=== PATIENT | female | born 1940 | race Caucasian/White ===

== ENCOUNTER 2016-04-22 02:54 | Inpatient (IN) | payer MEDICARE, OTHER ==
[~2016-04-22] VITALS: Ht 172.7 cm; Wt 135.6 kg
[2016-04-22 05:15] VITALS: BP 163/69
[2016-04-22] MEDS ORDERED: [UNRECOGNIZED DRUG - CODE] PO (06:05)
[2016-04-22] MEDS ORDERED: ASPI-991 PO (06:05)
[2016-04-22] MEDS ORDERED: FURO40TA5 PO (06:05)
[2016-04-22] MEDS ORDERED: FERR-58 PO (06:05)
[2016-04-22] MEDS ORDERED: LOSA1TAB36 PO (06:05)
[2016-04-22] MEDS ORDERED: CEFTRIAXONE 1 G in IV D5W 50 ML IV SCH (06:30)
[2016-04-22] MEDS ORDERED: ZOLPIDEM TARTRATE 5 MG TABLET PO PRN (06:30)
[2016-04-22] MEDS ORDERED: ACETAMINOPHEN 325 MG TABLET PO PRN (06:30)
[2016-04-22] MEDS ORDERED: ONDANSETRON HCL/PF 4 MG/2 ML VIAL IVP PRN (06:30)
[2016-04-22] MEDS ORDERED: Z GUARD REMEDY 2 OZ OINT TP PRN (06:30)
[2016-04-22] MEDS ORDERED: MAGNESIUM HYDROXIDE 30 ML UDC PO PRN (06:30)
[2016-04-22] MEDS ORDERED: CLONIDINE HCL 0.1 MG TABLET PO PRN (06:30)
[2016-04-22] MEDS ORDERED: MAG HYDROX/AL HYDROX/SIMETH 30 ML UDC PO PRN (06:30)
[2016-04-22] MEDS ORDERED: IV SET PRIMARY PUMP SET 1 EA INFUS.SET MC ONE ×2 (06:33→13:07)
[2016-04-22] MEDS ORDERED: SECONDARY IV SET 1 EA INFUS.SET MC ONE (06:33)
[2016-04-22] MEDS ORDERED: IV D5W 250 ML IV ONE (06:33)
[2016-04-22] MEDS ORDERED: IV NS 0.9% 250 ML IV ONE (06:33)
[2016-04-22] MEDS ORDERED: AZITHROMYCIN 500 MG VIAL ONE (06:43)
[2016-04-22] MEDS: AZITHROMYCIN 500 MG in IV D5W 250 ML IV SCH (06:55)
[2016-04-22 07:38] LABS: BASOPHILS % (AUTO) 0.1 % (0.0-2.0); DIFF TOTAL % 100 %; HEMATOCRIT 33 % (33-45); HEMOGLOBIN 11.1 g/dL (11.5-14.8); LYMPHOCYTES # (AUTO) 0.7 /CMM (0.8-4.8); LYMPHOCYTES % (AUTO) 4.8 % (20.0-44.0); MEAN CORPUSCULAR HEMOGLOBIN 30 PG (26.0-33.0); MEAN CORPUSCULAR HGB CONC 34 g/dl (31.0-36.0); MEAN CORPUSCULAR VOLUME 90 fL (82-100); MONOCYTES # (AUTO) 0.1 /CMM (0.1-1.30); MONOCYTES % (AUTO) 0.6 % (2.0-12.0); NEUTROPHILS # (AUTO) 14.4 /CMM (1.8-8.9); NEUTROPHILS % (AUTO) 94.5 % (43.0-81.0); PLATELET COUNT (AUTO) 234 /CMM (150-450); RED BLOOD CELL COUNT(AUTO) 3.68 MIL/uL (4.0-5.2); WHITE BLOOD COUNT (AUTO) 15.3 K/uL (4.3-11.0)
[2016-04-22 08:00] VITALS: BP 129/67
[2016-04-22 08:05] LABS: ALBUMIN 2.9 g/dL (3.4-5.0); BILIRUBIN,TOTAL 0.4 mg/dL (0.2-1.0); CALCIUM, SERUM 8.6 mg/dL (8.5-10.1); CREATININE 1.6 mg/dL (0.6-1.3); PHOSPHORUS 3.9 mg/dL (2.5-4.9); TOTAL PROTEIN, SERUM 6.9 g/dL (6.4-8.2)
[2016-04-22] MEDS: PANTOPRAZOLE 40 MG TABLET.DR PO SCH (08:15)
[2016-04-22 12:00] VITALS: BP 112/61
[2016-04-22] MEDS: FERROUS SULFATE (325 MG) 325 MG/TAB TABLET PO SCH (13:11)
[2016-04-22] MEDS: ASPIRIN EC 81 MG TABLET.DR PO SCH (13:11)
[2016-04-22] MEDS: IV NS 0.9% 1,000 ML IV PRN (13:11)
[2016-04-22] MEDS: LOSARTAN/HCTZ 50-12.5MG/ 1 EA TABLET PO SCH (13:22)
[2016-04-22] MEDS ORDERED: Magnesium 1GM/D5W 100ML PREMIX 100 ML IV SCH (13:30)
[2016-04-22 16:00] VITALS: BP 118/50
[2016-04-22] MEDS: HYDROCODONE/APAP 5/325MG 1 EACH TABLET PO PRN ×3 (17:14→23:12)
[2016-04-22] MEDS: NYSTATIN TOP POWDER 15 GM BOTTLE TP SCH (17:21)
[2016-04-22] MEDS ORDERED: DEXTROSE 50%-WATER 50 ML DISP.SYRIN IV PRN (18:00)
[2016-04-22 18:26] LABS: CALCIUM, SERUM 8.8 mg/dL (8.5-10.1); CREATININE 1.5 mg/dL (0.6-1.3); POTASSIUM 3.9 mmol/L (3.5-5.1)
[2016-04-22 20:00] VITALS: BP 123/43
[2016-04-22] MEDS: BLOOD SUGAR DIAGNOSTIC 1 EACH STRIP VI SCH (20:43)
[2016-04-22] MEDS: CEFTRIAXONE 1 G in IV D5W 50 ML IV SCH (23:15)
[2016-04-22] MEDS: *INSULIN REGULAR(HUMULIN R)HUM 100 UNIT/ML VIAL SQ PRN (23:21)
[2016-04-23] VITALS (7 sets, daily range): BP systolic 123–152; BP diastolic 43–72
[2016-04-23] MEDS: HYDROCODONE/APAP 5/325MG 1 EACH TABLET PO PRN (03:22)
[2016-04-23] MEDS: IV NS 0.9% 1,000 ML IV PRN ×2 (04:05→20:56)
[2016-04-23] MEDS: AZITHROMYCIN 500 MG in IV D5W 250 ML IV SCH (05:46)
[2016-04-23] MEDS: BLOOD SUGAR DIAGNOSTIC 1 EACH STRIP VI SCH ×4 (06:41→22:17)
[2016-04-23] MEDS: PANTOPRAZOLE 40 MG TABLET.DR PO SCH (06:44)
[2016-04-23 08:19] LABS: BASOPHILS % (AUTO) 0.2 % (0.0-2.0); DIFF TOTAL % 100 %; EOSINOPHILS % (AUTO) 0.1 % (0.0-6.0); HEMATOCRIT 32 % (33-45); HEMOGLOBIN 10.9 g/dL (11.5-14.8); LYMPHOCYTES % (AUTO) 13.7 % (20.0-44.0); MEAN CORPUSCULAR HEMOGLOBIN 30 PG (26.0-33.0); MEAN CORPUSCULAR HGB CONC 34 g/dl (31.0-36.0); MEAN CORPUSCULAR VOLUME 90 fL (82-100); MONOCYTES # (AUTO) 0.9 /CMM (0.1-1.30); MONOCYTES % (AUTO) 6.1 % (2.0-12.0); NEUTROPHILS # (AUTO) 11.9 /CMM (1.8-8.9); NEUTROPHILS % (AUTO) 79.9 % (43.0-81.0); PLATELET COUNT (AUTO) 242 /CMM (150-450); RED BLOOD CELL COUNT(AUTO) 3.59 MIL/uL (4.0-5.2); WHITE BLOOD COUNT (AUTO) 14.9 K/uL (4.3-11.0)
[2016-04-23 08:26] LABS: CALCIUM, SERUM 8.7 mg/dL (8.5-10.1); CREATININE 1.5 mg/dL (0.6-1.3); PHOSPHORUS 4.2 mg/dL (2.5-4.9); POTASSIUM 4.1 mmol/L (3.5-5.1)
[2016-04-23 08:38] LABS: KETONES,URINE NEGATIVE (NEGATIVE); LEUKOCYTE ESTERASE ,URINE 1+ (NEGATIVE); PH,URINE 5.5 (5.0-8.0)
[2016-04-23] MEDS: LOSARTAN/HCTZ 50-12.5MG/ 1 EA TABLET PO SCH (08:46)
[2016-04-23] MEDS: FERROUS SULFATE (325 MG) 325 MG/TAB TABLET PO SCH (08:46)
[2016-04-23] MEDS: ASPIRIN EC 81 MG TABLET.DR PO SCH (08:46)
[2016-04-23] MEDS: NYSTATIN TOP POWDER 15 GM BOTTLE TP SCH ×2 (08:47→17:44)
[2016-04-23 08:53] LABS: ADD UA MICROSCOPIC YES
[2016-04-23 08:56] LABS: ADD URINE CULTURE YES; MUCUS,URINE Few /LPF (None Seen); RBC,URINE 15-20 /HPF (0-2); WBC,URINE 15-20 /HPF (0-3)
[2016-04-23] MEDS ORDERED: INSULIN REGULAR, HUMAN 100 UNIT/ML 3 ML VIAL SQ PRN (12:00)
[2016-04-23 14:24] LABS: IRON, SERUM 83 ug/dl (50-175); PERCENT SATURATION 31 % (14-33); TOTAL IRON BINDING CAPACITY 266 ug/dl (250-450)
[2016-04-23] MEDS ORDERED: GUAIFENESIN/D-METHORPHAN HB 5 ML UDC PO PRN (14:30)
[2016-04-23] MEDS: CEFTRIAXONE 1 G in IV D5W 50 ML IV SCH (22:14)
[2016-04-23] MEDS ORDERED: SECONDARY IV SET 1 EA INFUS.SET MC ONE (22:18)
[2016-04-24 04:00] VITALS: BP 124/56
[2016-04-24 04:16] VITALS: BP 124/56
[2016-04-24] MEDS: AZITHROMYCIN 500 MG in IV D5W 250 ML IV SCH (05:31)
[2016-04-24] MEDS: BLOOD SUGAR DIAGNOSTIC 1 EACH STRIP VI SCH ×4 (07:30→21:48)
[2016-04-24] MEDS: PANTOPRAZOLE 40 MG TABLET.DR PO SCH (07:30)
[2016-04-24 07:53] LABS: BASOPHILS # (AUTO) 0.1 /CMM (0.0-0.2); BASOPHILS % (AUTO) 0.5 % (0.0-2.0); DIFF TOTAL % 100 %; EOSINOPHILS # (AUTO) 0.3 /CMM (0.0-0.7); EOSINOPHILS % (AUTO) 2.5 % (0.0-6.0); HEMATOCRIT 32 % (33-45); HEMOGLOBIN 10.8 g/dL (11.5-14.8); LYMPHOCYTES # (AUTO) 3.2 /CMM (0.8-4.8); LYMPHOCYTES % (AUTO) 27.9 % (20.0-44.0); MEAN CORPUSCULAR HEMOGLOBIN 30 PG (26.0-33.0); MEAN CORPUSCULAR HGB CONC 33 g/dl (31.0-36.0); MEAN CORPUSCULAR VOLUME 91 fL (82-100); MONOCYTES # (AUTO) 0.6 /CMM (0.1-1.30); MONOCYTES % (AUTO) 5.7 % (2.0-12.0); NEUTROPHILS # (AUTO) 7.2 /CMM (1.8-8.9); NEUTROPHILS % (AUTO) 63.4 % (43.0-81.0); PLATELET COUNT (AUTO) 243 /CMM (150-450); RED BLOOD CELL COUNT(AUTO) 3.56 MIL/uL (4.0-5.2); WHITE BLOOD COUNT (AUTO) 11.3 K/uL (4.3-11.0)
[2016-04-24 08:34] LABS: CALCIUM, SERUM 8.4 mg/dL (8.5-10.1); CREATININE 1.5 mg/dL (0.6-1.3); PHOSPHORUS 4.8 mg/dL (2.5-4.9); POTASSIUM 3.9 mmol/L (3.5-5.1)
[2016-04-24] MEDS: NYSTATIN TOP POWDER 15 GM BOTTLE TP SCH ×2 (09:00→17:42)
[2016-04-24] MEDS: LOSARTAN/HCTZ 50-12.5MG/ 1 EA TABLET PO SCH (09:00)
[2016-04-24] MEDS: ASPIRIN EC 81 MG TABLET.DR PO SCH (09:00)
[2016-04-24] MEDS: FERROUS SULFATE (325 MG) 325 MG/TAB TABLET PO SCH (09:00)
[2016-04-24] MEDS ORDERED: POLYVINYL ALCOHOL 15 ML BOTTLE EACHEYE PRN (09:30)
[2016-04-24] MEDS ORDERED: ALBUTEROL FS 2.5 MG/0.5 ML VIAL.NEB NEB PRN (10:00)
[2016-04-24] MEDS ORDERED: IPRATROPIUM NEB FS 0.5 MG/2.5 ML AMPUL.NEB NEB PRN (10:00)
[2016-04-24] MEDS: HYDROCODONE/APAP 5/325MG 1 EACH TABLET PO PRN (12:36)
[2016-04-24] MEDS ORDERED: CIPROFLOXACIN HCL 0.3% 5 ML BOTTLE EACHEYE SCH (13:00)
[2016-04-24] MEDS: IPRATROPIUM NEB FS 0.5 MG/2.5 ML AMPUL.NEB NEB SCH ×2 (13:09→19:51)
[2016-04-24] MEDS: ALBUTEROL FS 2.5 MG/0.5 ML VIAL.NEB NEB SCH ×2 (13:09→19:52)
[2016-04-24 20:00] VITALS: BP 156/65
[2016-04-24] MEDS: CEFTRIAXONE 1 G in IV D5W 50 ML IV SCH (22:34)
[2016-04-24] MEDS ORDERED: IV NS 0.9% 250 ML IV ONE (22:35)
[2016-04-25] MEDS: ALBUTEROL FS 2.5 MG/0.5 ML VIAL.NEB NEB SCH ×4 (01:44→19:33)
[2016-04-25] MEDS: IPRATROPIUM NEB FS 0.5 MG/2.5 ML AMPUL.NEB NEB SCH ×4 (01:44→19:33)
[2016-04-25 04:00] VITALS: BP 133/69
[2016-04-25 05:19] VITALS: BP 133/69
[2016-04-25] MEDS: AZITHROMYCIN 500 MG in IV D5W 250 ML IV SCH (05:58)
[2016-04-25 07:15] LABS: ALBUMIN 2.8 g/dL (3.4-5.0); BILIRUBIN,TOTAL 0.3 mg/dL (0.2-1.0); CALCIUM, SERUM 8.8 mg/dL (8.5-10.1); CREATININE 1.3 mg/dL (0.6-1.3); POTASSIUM 4.3 mmol/L (3.5-5.1); TOTAL PROTEIN, SERUM 6.4 g/dL (6.4-8.2)
[2016-04-25 07:16] LABS: BASOPHILS # (AUTO) 0.1 /CMM (0.0-0.2); BASOPHILS % (AUTO) 0.7 % (0.0-2.0); DIFF TOTAL % 100 %; EOSINOPHILS # (AUTO) 0.3 /CMM (0.0-0.7); EOSINOPHILS % (AUTO) 2.5 % (0.0-6.0); HEMATOCRIT 33 % (33-45); HEMOGLOBIN 10.6 g/dL (11.5-14.8); LYMPHOCYTES # (AUTO) 2.2 /CMM (0.8-4.8); LYMPHOCYTES % (AUTO) 20.9 % (20.0-44.0); MEAN CORPUSCULAR HEMOGLOBIN 29 PG (26.0-33.0); MEAN CORPUSCULAR HGB CONC 33 g/dl (31.0-36.0); MEAN CORPUSCULAR VOLUME 90 fL (82-100); MONOCYTES # (AUTO) 0.7 /CMM (0.1-1.30); MONOCYTES % (AUTO) 6.2 % (2.0-12.0); NEUTROPHILS # (AUTO) 7.5 /CMM (1.8-8.9); NEUTROPHILS % (AUTO) 69.7 % (43.0-81.0); PLATELET COUNT (AUTO) 251 /CMM (150-450); RED BLOOD CELL COUNT(AUTO) 3.62 MIL/uL (4.0-5.2); WHITE BLOOD COUNT (AUTO) 10.7 K/uL (4.3-11.0)
[2016-04-25 08:00] VITALS: BP 124/61
[2016-04-25] MEDS: BLOOD SUGAR DIAGNOSTIC 1 EACH STRIP VI SCH ×4 (08:22→22:23)
[2016-04-25] MEDS: PANTOPRAZOLE 40 MG TABLET.DR PO SCH (08:37)
[2016-04-25] MEDS: ASPIRIN EC 81 MG TABLET.DR PO SCH (09:29)
[2016-04-25] MEDS: predniSONE 20 MG TABLET PO SCH (09:29)
[2016-04-25] MEDS: LOSARTAN/HCTZ 50-12.5MG/ 1 EA TABLET PO SCH (09:29)
[2016-04-25] MEDS: FERROUS SULFATE (325 MG) 325 MG/TAB TABLET PO SCH (09:29)
[2016-04-25] MEDS: NYSTATIN TOP POWDER 15 GM BOTTLE TP SCH ×2 (09:30→17:54)
[2016-04-25] MEDS: *INSULIN REGULAR(HUMULIN R)HUM 100 UNIT/ML VIAL SQ PRN ×3 (13:58→22:23)
[2016-04-25 20:00] VITALS: BP 141/71
[2016-04-25 20:22] VITALS: BP 141/71
[2016-04-25] MEDS: CEFTRIAXONE 1 G in IV D5W 50 ML IV SCH (22:06)
[2016-04-26] VITALS: BP 130/70
[2016-04-26] MEDS: ALBUTEROL FS 2.5 MG/0.5 ML VIAL.NEB NEB SCH ×3 (00:41→12:54)
[2016-04-26] MEDS: IPRATROPIUM NEB FS 0.5 MG/2.5 ML AMPUL.NEB NEB SCH ×3 (00:41→12:54)
[2016-04-26 04:00] VITALS: BP 141/62
[2016-04-26 04:41] VITALS: BP 141/62
[2016-04-26] MEDS: AZITHROMYCIN 500 MG in IV D5W 250 ML IV SCH (05:29)
[2016-04-26] MEDS: BLOOD SUGAR DIAGNOSTIC 1 EACH STRIP VI SCH ×2 (07:30→12:00)
[2016-04-26 08:00] VITALS: BP 140/65
[2016-04-26 08:11] LABS: BASOPHILS # (AUTO) 0.1 /CMM (0.0-0.2); BASOPHILS % (AUTO) 0.7 % (0.0-2.0); DIFF TOTAL % 100 %; EOSINOPHILS # (AUTO) 0.1 /CMM (0.0-0.7); EOSINOPHILS % (AUTO) 1.5 % (0.0-6.0); HEMATOCRIT 30 % (33-45); LYMPHOCYTES # (AUTO) 2.4 /CMM (0.8-4.8); LYMPHOCYTES % (AUTO) 24.3 % (20.0-44.0); MEAN CORPUSCULAR HEMOGLOBIN 30 PG (26.0-33.0); MEAN CORPUSCULAR HGB CONC 33 g/dl (31.0-36.0); MEAN CORPUSCULAR VOLUME 90 fL (82-100); MONOCYTES # (AUTO) 0.8 /CMM (0.1-1.30); MONOCYTES % (AUTO) 7.7 % (2.0-12.0); NEUTROPHILS # (AUTO) 6.6 /CMM (1.8-8.9); NEUTROPHILS % (AUTO) 65.8 % (43.0-81.0); PLATELET COUNT (AUTO) 208 /CMM (150-450); RED BLOOD CELL COUNT(AUTO) 3.39 MIL/uL (4.0-5.2); WHITE BLOOD COUNT (AUTO) 10.1 K/uL (4.3-11.0)
[2016-04-26 08:36] LABS: ALBUMIN 2.6 g/dL (3.4-5.0); BILIRUBIN,TOTAL 0.4 mg/dL (0.2-1.0); CALCIUM, SERUM 8.9 mg/dL (8.5-10.1); CREATININE 1.2 mg/dL (0.6-1.3); POTASSIUM 4.7 mmol/L (3.5-5.1); TOTAL PROTEIN, SERUM 6.1 g/dL (6.4-8.2)
[2016-04-26] MEDS: NYSTATIN TOP POWDER 15 GM BOTTLE TP SCH (09:00)
[2016-04-26] MEDS: ASPIRIN EC 81 MG TABLET.DR PO SCH (09:00)
[2016-04-26] MEDS: predniSONE 20 MG TABLET PO SCH (10:39)
[2016-04-26 10:41] VITALS: BP 140/65
[2016-04-26] MEDS: HYDROCODONE/APAP 5/325MG 1 EACH TABLET PO PRN ×2 (10:41→10:47)
[2016-04-26] MEDS: LOSARTAN/HCTZ 50-12.5MG/ 1 EA TABLET PO SCH (10:41)
[2016-04-26] MEDS: FERROUS SULFATE (325 MG) 325 MG/TAB TABLET PO SCH (10:41)
[2016-04-26] MEDS: PANTOPRAZOLE 40 MG TABLET.DR PO SCH (10:41)
[2016-04-27] MEDS ORDERED: AZITHROMYCIN 250 MG TABLET PO SCH (06:30)
== END 2016-04-26 16:14 | disposition home or self-care (01) | DRG 438 ==
LOC: TELE1 05:33 → MEDSG1 12:13
PROVIDERS: ADMIT Internal Medicine; ATTEND Internal Medicine
DX: K85.90 Acute pancreatitis without necrosis or infection, unspecified (principal); J18.9 Pneumonia, unspecified organism; N17.0 Acute kidney failure with tubular necrosis; I50.33 Acute on chronic diastolic (congestive) heart failure; E44.0 Moderate protein-calorie malnutrition; I13.0 Hypertensive heart and chronic kidney disease with heart failure and stage 1 through stage 4 chronic kidney disease, or unspecified chronic kidney disease; J20.9 Acute bronchitis, unspecified; K21.9 Gastro-esophageal reflux disease without esophagitis; N18.9 Chronic kidney disease, unspecified; E11.22 Type 2 diabetes mellitus with diabetic chronic kidney disease; E11.40 Type 2 diabetes mellitus with diabetic neuropathy, unspecified; E78.5 Hyperlipidemia, unspecified; J06.9 Acute upper respiratory infection, unspecified; F32.9 Major depressive disorder, single episode, unspecified; F41.9 Anxiety disorder, unspecified; E11.65 Type 2 diabetes mellitus with hyperglycemia; E66.01 Morbid (severe) obesity due to excess calories; G47.33 Obstructive sleep apnea (adult) (pediatric); J45.909 Unspecified asthma, uncomplicated; D63.8 Anemia in other chronic diseases classified elsewhere; D69.2 Other nonthrombocytopenic purpura; E83.42 Hypomagnesemia; L98.9 Disorder of the skin and subcutaneous tissue, unspecified; Z72.0 Tobacco use
CPT/HCPCS: 36415; 71010-TC; 76700-TC; 78226; 80048-TC; 80053-TC; 81000-TC; 82962-TC; 83540-TC; 83690-TC; 83735-TC; 84100-TC; 85025-TC; 87081-TC; 87086-TC; 87400; 93307-TC; 94799-TC; A9537; J0456; J0696; J1815; J3475; J7030; J7050; J7060

== ENCOUNTER 2017-05-26 17:20 | Inpatient (IN) | payer MEDICARE, OTHER ==
[~2017-05-26] VITALS: Ht 165.1 cm; Wt 145.1 kg
[~2017-05-26 17:20] MED LIST: ASPI-1152 PO; FERR325T23 PO; FURO40TA5 PO; LOSA1TAB36 PO; [UNRECOGNIZED DRUG - CODE] PO
[2017-05-26] MEDS ORDERED: DEXAMETHASONE SOD PHOSPHATE 10 MG/ML VIAL ONE (17:50)
[2017-05-26] MEDS ORDERED: hydrALAZINE HCL IV 20 MG VIAL ONE (17:50)
[2017-05-26] MEDS ORDERED: ONDANSETRON HCL/PF 4 MG/2 ML VIAL ONE ×2 (17:50→21:55)
[2017-05-26] MEDS ORDERED: MORPHINE SULFATE INJ 4 MG/ML DISP.SYRIN ONE ×2 (17:51→21:56)
[2017-05-26] MEDS ORDERED: hydrALAZINE HCL IV 20 MG VIAL IV ONE (18:00)
[2017-05-26] MEDS ORDERED: ONDANSETRON HCL/PF - ER 4 MG/2 ML VIAL IV ONE ×2 (18:00→21:30)
[2017-05-26] MEDS ORDERED: MORPHINE SULFATE INJ 2 MG/ML DISP.SYRIN IV ONE ×2 (18:00→21:30)
[2017-05-26] MEDS ORDERED: DEXAMETHASONE SOD PHOSPHATE 10 MG/ML VIAL IV ONE (18:00)
--- NOTE | 2017-05-26 18:10 | NUR ---
JHONNY DEVINE [phone] DIVYA DTR IN LAW [phone]
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
--- NOTE | 2017-05-26 18:20 | NUR ---
IV ACCESS STARTED. MEDICATED ORDERED.
--- NOTE | 2017-05-26 18:30 | NUR ---
PT TAKEN TO CT.
[2017-05-26] MEDS ORDERED: TRAM50TA2 PO (18:35)
[2017-05-26] MEDS ORDERED: IBUP-1953 PO (18:35)
--- NOTE | 2017-05-26 18:35 | NUR ---
UNABLE TO DO CT SCAN PER EMBEDDED SYSTEMS SOFTWARE DEVELOPER.
--- NOTE | 2017-05-26 19:02 | NUR ---
RECEIVED REPORT FROM VISH SHAH. PT APPEARS TO BE COMFORTABLE.
--- NOTE | 2017-05-26 20:58 | NUR ---
CALLED [facility] TO FIND A FACILITY THAT OFFERS SCANNER TO ACCOMADATE PATIENT SIZE
--- NOTE | 2017-05-26 20:59 | NUR ---
REFFERED BY KAMI - CALLED [facility] - THEIR CT SCANNER CANNOT ACCOMMODATE
--- NOTE | 2017-05-26 21:00 | NUR ---
REFFERED BY [facility] - [facility] - THEIR CT SCANNER CANNOT ACCOMMODATE
--- NOTE | 2017-05-26 21:01 | NUR ---
REFFERED BY KAMI - [facility] - THEIR CT SCANNER CANNOT ACCOMMODATE
--- NOTE | 2017-05-26 21:01 | NUR ---
REFFERED BY [facility] - CALLED [facility] - THEIR CT SCANNER CANNOT ACCOMMODATE
--- NOTE | 2017-05-26 21:01 | NUR ---
CALLED [facility] AGAIN - WAS REFERRED TO MORE FACILITES
--- NOTE | 2017-05-26 21:02 | NUR ---
REFFERED BY [facility] - CALLED [facility] - DOCTOR SAID THAT PATIENT WOULD NOT FIT IN CT SCANNER
--- NOTE | 2017-05-26 21:05 | NUR ---
REFFERED BY [facility] [place] - [facility] [address] - THEIR CT SCANNER CANNOT ACCOMMODATE PATIENT
--- NOTE | 2017-05-26 21:05 | NUR ---
CALLED [facility] TO TRY TO SEND PATIENT TO FACILITY THAT HAS A CT SCANNER THAT CAN ACCEPT THE PATIENT - WAS INFORMED THAT THERE ARE NO FACILITES THAT CAN ACCEPT PATIENT AT THEIR SIZE (GIRTH MEASURMENT OF 48 INCHES) IN THEIR CT SCANNERS
--- NOTE | 2017-05-26 21:09 | NUR ---
CALLED [facility] - THEY DO NOT HAVE CT SCANNER THAT CAN ACCEPT PATIENT SIZE
--- NOTE | 2017-05-26 21:22 | NUR ---
[facility] CALLED SPOKE TO [facility] REGARDING [facility] TRANSFER, INFO PROVIDED REQUESTED. AWAITING CALL BACK.
--- NOTE | 2017-05-26 21:23 | NUR ---
CALLED [facility] AND SPOKE WITH NURSE DEIDRE RAINES - SHE WILL SEE IF THEIR CT SCANNER CAN ACCEPT THE PATIENT AND WILL CALL BACK
--- NOTE | 2017-05-26 22:00 | NUR ---
[facility] STATES "WE CAN NOT ACCOMODATE THE PATIENT WEIGHT EITHER".
--- NOTE | 2017-05-26 22:00 | NUR ---
CENTRIFUGAL SCREEN TENDER NEGRETTE AT BEDSIDE FOR EVAL WITH RN HOV TO TRANSLATE.
--- NOTE | 2017-05-26 22:26 | NUR ---
M/S 311-2. DANGELO
[2017-05-26] MEDS ORDERED: ONDANSETRON HCL/PF 4 MG/2 ML VIAL IVP PRN (22:30)
[2017-05-26] MEDS ORDERED: MAG HYDROX/AL HYDROX/SIMETH 30 ML UDC PO PRN (22:30)
[2017-05-26] MEDS ORDERED: Z GUARD REMEDY 2 OZ OINT TP PRN (22:30)
[2017-05-26] MEDS ORDERED: TRAMADOL HCL 50 MG TABLET PO PRN (22:30)
[2017-05-26] MEDS ORDERED: MAGNESIUM HYDROXIDE 30 ML UDC PO PRN (22:30)
[2017-05-26] MEDS ORDERED: MORPHINE SULFATE INJ 2 MG/ML DISP.SYRIN IV PRN (22:30)
[2017-05-26] MEDS ORDERED: hydrALAZINE HCL IV 20 MG VIAL IV PRN (22:30)
--- NOTE | 2017-05-26 22:31 | NUR ---
REPORT GIVEN TO VISH PIERSON FOR GINA.
[2017-05-26 22:40] VITALS: BP 145/76
--- NOTE | 2017-05-26 22:40 | NUR ---
PT TRANSFERRED VIA GURNEY TO MS BED 311
--- NOTE | 2017-05-26 22:40 | NUR ---
PRODUCTION SCHEDULER NOTES 2240 PT ARRIVED TO MEDR UNIT VIA GURNEY IN STABLE CONDITION. PT IS A/O X3, RESPIRATIONS ARE EVEN AND UNLABORED, NOT IN ANY ACUTE DISTRESS NOTED. PUPILS ARE REACTIVE TO LIGHT. BILATERAL HAND ADOPTION MANAGER ARE STRONG AND EQUAL. DENIES ANY SOB, CHEST PAIN, N/V. ABDOMEN IS ROUND, SOFT AND NONDISTENDED. BOWEL SOUNDS ARE PRESENT IN ALL 4 QUADRANTS UPON AUSCULTATION. DENIES ANY BLADDER DISCOMFORT. OPEN WOUNDS NOTED TO ANTERIOR PELVIS AREA AND RIGHT POSTERIOR THIGH, DISCOLORATION NOTED TO BUTTOCKS. PICTURES TAKEN AND PLACED IN PT'S CHART. PT ABLE TO TURN SELF USING SIDE RAILS. IV TO CASSIE NOTED TO BE INTACT, NO INFILTRATION NOTED. DRESSING KEPT CLEAN AND DRY. SAFETY MEASURES IN PLACE. BED IS IN ITS LOW AND LOCKED POSITION. INSTRUCTED PT TO USE CALL LIGHT WHEN ASSISTANCE IS NEEDED, PT ABLE TO PERFORM RETURN DEMONSTRATION. CALL LIGHT IS LEFT WITHIN REACH. WILL CONTINUE TO MONITOR THROUGHOUT SHIFT. PATEL LINN IS AWARE OF ADMIT.
[2017-05-26 22:51] LABS: BASOPHILS % (AUTO) 0.1 % (0.0-2.0); EOSINOPHILS % (AUTO) 0.1 % (0.0-6.0); HEMATOCRIT 33 % (33-45); HEMOGLOBIN 11.4 g/dL (11.5-14.8); LYMPHOCYTES # (AUTO) 1.3 /CMM (0.8-4.8); LYMPHOCYTES % (AUTO) 8.5 % (20.0-44.0); MEAN CORPUSCULAR HEMOGLOBIN 31 PG (26.0-33.0); MEAN CORPUSCULAR HGB CONC 34 g/dl (31.0-36.0); MEAN CORPUSCULAR VOLUME 89 fL (82-100); MONOCYTES # (AUTO) 0.2 /CMM (0.1-1.30); MONOCYTES % (AUTO) 1.4 % (2.0-12.0); NEUTROPHILS # (AUTO) 13.4 /CMM (1.8-8.9); NEUTROPHILS % (AUTO) 89.9 % (43.0-81.0); PLATELET COUNT (AUTO) 299 /CMM (150-450); RDW COEFFICIENT OF VARIATION 13.2 (11.5-15.0); RED BLOOD CELL COUNT(AUTO) 3.71 MIL/uL (4.0-5.2); WHITE BLOOD COUNT (AUTO) 14.9 K/uL (4.3-11.0)
[2017-05-26 23:00] VITALS: BP 145/76
[2017-05-26 23:12] LABS: ALANINE AMINOTRANSFERASE 29 U/L (12-78); ALBUMIN 3.2 g/dL (3.4-5.0); ALKALINE PHOSPHATASE 111 U/L (46-116); ASPARTATE AMINOTRANSFERASE 18 U/L (15-37); BILIRUBIN,TOTAL 0.4 mg/dL (0.2-1.0); CALCIUM, SERUM 9.8 mg/dL (8.5-10.1); CARBON DIOXIDE 26 mmol/L (21-32); CHLORIDE 99 mmol/L (98-107); CREATININE 1.3 mg/dL (0.6-1.3); GLUCOSE 167 mg/dL (74-106); MAGNESIUM 1.8 mg/dL (1.8-2.4); PHOSPHORUS 4.3 mg/dL (2.5-4.9); POTASSIUM 4.2 mmol/L (3.5-5.1); SODIUM SERUM 136 mmol/L (136-145); TOTAL PROTEIN, SERUM 7.3 g/dL (6.4-8.2); UREA NITROGEN, BLOOD 39 mg/dL (7-18)
[2017-05-26 23:19] LABS: CHOLESTEROL 338 mg/dL (<200); HDL CHOLESTEROL 44 mg/dL (40-60); LDL 236 mg/dL (0-99); THYROID STIMULATING HORMONE 1.004 uIU/mL (0.358-3.74); TRIGLYCERIDES 199 mg/dL (30-150)
--- NOTE | 2017-05-27 01:12 | NUR ---
INITIAL FINDING OF ECHO STUDY SHOWED POSSIBLE PFO. INFORMED CHARGE NURSE (ELLIE).
--- NOTE | 2017-05-27 06:03 | NUR ---
RN NOTES RELAYED ECHO RESULTS TO PATEL LINN W/ NO NEW ORDERS AT THIS TIME.
--- NOTE | 2017-05-27 06:17 | NUR ---
RN CLOSING NOTES ALL NEEDS MET AND ANTICIPATED. REMAINS AFEBRILE. RESPIRATIONS ARE EVEN AND UNLABORED, NOT IN ANY ACUTE DISTRESS NOTED. PT DENIES ANY PAIN AT THIS TIME. PT STATES SHE IS COMFORTABLE IN BED. IV TO CASSIE INTACT, NO INFILTRATION NOTED. DRESSING KEPT CLEAN AND DRY. SAFETY MEASURES IN PLACE. BED IS IN ITS LOW AND LOCKED POSITION. WILL ENDORSE TO NEXT SHIFT FOR CONTINUITY OF CARE.
[2017-05-27 06:48] LABS: HEMATOCRIT 32 % (33-45); LYMPHOCYTES # (AUTO) 1.4 /CMM (0.8-4.8); LYMPHOCYTES % (AUTO) 11.1 % (20.0-44.0); MEAN CORPUSCULAR HEMOGLOBIN 31 PG (26.0-33.0); MEAN CORPUSCULAR HGB CONC 34 g/dl (31.0-36.0); MEAN CORPUSCULAR VOLUME 90 fL (82-100); MONOCYTES # (AUTO) 0.3 /CMM (0.1-1.30); MONOCYTES % (AUTO) 2.1 % (2.0-12.0); NEUTROPHILS # (AUTO) 10.8 /CMM (1.8-8.9); NEUTROPHILS % (AUTO) 86.8 % (43.0-81.0); PLATELET COUNT (AUTO) 300 /CMM (150-450); RDW COEFFICIENT OF VARIATION 13.6 (11.5-15.0); RED BLOOD CELL COUNT(AUTO) 3.57 MIL/uL (4.0-5.2); WHITE BLOOD COUNT (AUTO) 12.5 K/uL (4.3-11.0)
[2017-05-27 06:57] LABS: CALCIUM, SERUM 9.4 mg/dL (8.5-10.1); CARBON DIOXIDE 27 mmol/L (21-32); CHLORIDE 101 mmol/L (98-107); CREATININE 1.4 mg/dL (0.6-1.3); GLUCOSE 150 mg/dL (74-106); POTASSIUM 4.2 mmol/L (3.5-5.1); SODIUM SERUM 138 mmol/L (136-145); UREA NITROGEN, BLOOD 38 mg/dL (7-18)
--- NOTE | 2017-05-27 07:43 | NUR ---
MS/RN OPENING NOTE PATIENT IN BED IN STABLE CONDITION. A/O X 3, GREENLANDIC SPEAKING. NO SIGNS OF ACUTE DISTRESS. NO COMPLAIN OF PAIN OR DISCOMFORT. ALL NEEDS ATTENDED TO. CALL LIGHT WITHIN REACH. WILL CONTINUE TO MONITOR TO ENSURE SAFETY.
[2017-05-27 08:00] VITALS: BP 133/54
[2017-05-27] MEDS: LOSARTAN/HCTZ 50-12.5MG/ 1 EA TABLET PO SCH (08:22)
[2017-05-27] MEDS: HYDROCODONE/APAP 5/325MG 1 EACH TABLET PO PRN ×2 (08:22→22:50)
[2017-05-27] MEDS: ASPIRIN EC 81 MG TABLET.DR PO SCH (08:23)
[2017-05-27] MEDS ORDERED: FUROSEMIDE 40 MG TABLET PO SCH (09:00)
[2017-05-27] MEDS ORDERED: FERROUS SULFATE (325 MG) 325 MG/TAB TABLET PO SCH (09:00)
[2017-05-27] MEDS ORDERED: PANTOPRAZOLE 40 MG/PACK PACK NG SCH (09:30)
[2017-05-27] MEDS: ATORVASTATIN 10 MG TABLET PO SCH (09:43)
[2017-05-27] MEDS: ENOXAPARIN SODIUM 30 MG/0.3 ML DISP.SYRIN SQ SCH (09:48)
[2017-05-27 09:59] LABS: THYROID STIMULATING HORMONE 0.899 uIU/mL (0.358-3.74)
--- NOTE | 2017-05-27 10:09 | NUR ---
WOUND CARE CONSULT: PT PRESENTS WITH PELVIC AREA WOUNDS AND RT POSTERIOR THIGH WOUNDS, PRESENT ON ADMISSION. PT ABLE TO ASSIST WITH TURNING AND REPOSITIONING IN BED. CURRENT NICHO SCORE IS 16. PT CONTINENT AT THIS TIME. ISOFLEX LOW AIRLOSS BED TO BE PLACED. ALL SKIN PROTECTION AND WOUND RECOMMENDATIONS DISCUSSED WITH NURSING STAFF. WILL SEE PRN. GRANT IN AGREEMENT WITH PLAN OF CARE. Addendum: 05/27/17 at 1012 by GUSTABO BENTON WNDNU Amended: Links added.
[2017-05-27] MEDS ORDERED: HYDROGEL DRESSING 90 GM TUBE TP SCH (10:30)
[2017-05-27] MEDS ORDERED: HYDROGEL DRESSING 90 GM TUBE TP PRN (10:30)
[2017-05-27] MEDS: HYDROMORPHONE INJ 0.5 MG/0.5 ML SYRINGE IV PRN ×2 (10:52→14:59)
--- NOTE | 2017-05-27 14:50 | NUR ---
MS/RN PAGED SIM SWEENEY PATIENT NOTED WITH LEFT LEG MILD REDNESS AND WARM TO TOUCH COMPARED TO RIGHT LEG, WITH COMPLAIN RATED 8/10 TO LEFT KNEE. SIM SWEENEY PAGED TO MAKE AWARE. WILL F/U.
[2017-05-27 16:00] VITALS: BP 109/48
[2017-05-27] MEDS: NEOMY SULF/BACITRAC ZN/POLY 15 GM TUBE TP SCH (17:00)
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
--- NOTE | 2017-05-27 18:36 | NUR ---
MS/RN CLOSING NOTE PATIENT IN BED IN STABLE CONDITION. A/O X 3, GEORGIAN SPEAKING. NO SIGNS OF ACUTE DISTRESS. NO COMPLAIN OF PAIN OR DISCOMFORT. ALL NEEDS ATTENDED TO. CALL LIGHT WITHIN REACH. WILL ENDORSE TO NEXT SHIFT FOR CONTINUITY OF CARE.
--- NOTE | 2017-05-27 18:48 | NUR ---
per MD, patient will need CT of spine and multiple Xray's to r/o fractures and pneumothorax but radiology dept is having difficulty due to patient habitus/weight 320lbs. Discussed with school director- limited Xray's we're done pending results. Per radiology- attempted to do the CT scan but patient won't fit to the scanner. MD to review Xray result, if further CT scan are needed- will refer patient to outside imaging center > [facility] [phone]. Addendum: 05/27/17 at 2115 by LIZA ABEBE RN Amended: Links added.
[2017-05-27 20:00] VITALS: BP 131/71
--- NOTE | 2017-05-27 20:00 | NUR ---
ms/rn opening notes PATIENT IN BED, ALERT, ORIENTED, MOHAWK SPEAKING BUT CAN VERBALIZE WORDS IN URUGUAYAN, RESPIRATIONS EVEN AND UNLABORED, REQUIRE FREQUENT TURNING AND REPOSITION, SKIN WARM TO TOUCH, PAIN MONITORING. WILL CONTINUE TO MONITOR. BED IN LOCK POSITION. RECEIVED ENDORSEMENT FORM AM RN FOR GINA.
[2017-05-27 20:43] VITALS: BP 131/71
--- NOTE | 2017-05-27 22:55 | NUR ---
MS/RN NOTES PATIENT OBSERVED GRIMACE AND GUARDING, REPORTED PAIN IN GENERALIZED/ REPOSITION FOR COMFORT, WILL CONTINUE TO MONITOR.
[2017-05-28] MEDS: HYDROMORPHONE INJ 0.5 MG/0.5 ML SYRINGE IV PRN ×2 (02:23→06:58)
--- NOTE | 2017-05-28 02:24 | NUR ---
ms/rn notes patient woke from sleep and reported feeling hungy and in pain,, provided snack, jello , pain reported, moaning will administer pain med
[2017-05-28] MEDS: HYDROCODONE/APAP 5/325MG 1 EACH TABLET PO PRN ×4 (03:52→20:40)
[2017-05-28] MEDS: PANTOPRAZOLE 40 MG TABLET.DR PO SCH (06:58)
[2017-05-28 07:00] LABS: BASOPHILS # (AUTO) 0.1 /CMM (0.0-0.2); BASOPHILS % (AUTO) 0.6 % (0.0-2.0); EOSINOPHILS # (AUTO) 0.2 /CMM (0.0-0.7); EOSINOPHILS % (AUTO) 1.5 % (0.0-6.0); HEMATOCRIT 29 % (33-45); HEMOGLOBIN 9.9 g/dL (11.5-14.8); LYMPHOCYTES # (AUTO) 3.8 /CMM (0.8-4.8); LYMPHOCYTES % (AUTO) 27.6 % (20.0-44.0); MEAN CORPUSCULAR HEMOGLOBIN 31 PG (26.0-33.0); MEAN CORPUSCULAR HGB CONC 34 g/dl (31.0-36.0); MEAN CORPUSCULAR VOLUME 90 fL (82-100); MONOCYTES % (AUTO) 7.5 % (2.0-12.0); NEUTROPHILS # (AUTO) 8.7 /CMM (1.8-8.9); NEUTROPHILS % (AUTO) 62.8 % (43.0-81.0); PLATELET COUNT (AUTO) 290 /CMM (150-450); RDW COEFFICIENT OF VARIATION 13.5 (11.5-15.0); RED BLOOD CELL COUNT(AUTO) 3.19 MIL/uL (4.0-5.2); WHITE BLOOD COUNT (AUTO) 13.9 K/uL (4.3-11.0)
--- NOTE | 2017-05-28 07:02 | NUR ---
ms/rn notes patient guarding moaning , in painsevere, administer dialudid and monitor effectiveness.
[2017-05-28 07:24] LABS: ALANINE AMINOTRANSFERASE 7 U/L (12-78); ALBUMIN 2.6 g/dL (3.4-5.0); ALKALINE PHOSPHATASE 85 U/L (46-116); ASPARTATE AMINOTRANSFERASE 12 U/L (15-37); BILIRUBIN,TOTAL 0.2 mg/dL (0.2-1.0); CALCIUM, SERUM 8.7 mg/dL (8.5-10.1); CARBON DIOXIDE 27 mmol/L (21-32); CHLORIDE 102 mmol/L (98-107); CREATININE 1.7 mg/dL (0.6-1.3); GLUCOSE 114 mg/dL (74-106); MAGNESIUM 1.7 mg/dL (1.8-2.4); PHOSPHORUS 4.3 mg/dL (2.5-4.9); POTASSIUM 3.6 mmol/L (3.5-5.1); SODIUM SERUM 137 mmol/L (136-145); UREA NITROGEN, BLOOD 51 mg/dL (7-18)
--- NOTE | 2017-05-28 07:30 | NUR ---
ms/rn closing notes patient in bed, pain medication administered, endorse to am rn for kings, respirations even and unlabored, require extensive assistance for turning, call lights within reach., offered/provide fluids, bed in lock position. Will continue to monitor.
[2017-05-28 08:00] VITALS: BP 100/50
--- NOTE | 2017-05-28 08:00 | NUR ---
MS/RN AM NOTES PATIENT IN BED A/O X 3, SWAZI SPEAKING.DENIES PAIN OR ACUTE DISTRESS. NO COMPLAIN OF PAIN OR DISCOMFORT. NEEDS ATTENDED TO. CALL LIGHT WITHIN REACH. WILL CONTINUE TO MONITOR TO ENSURE SAFETY.
[2017-05-28] MEDS: LOSARTAN/HCTZ 50-12.5MG/ 1 EA TABLET PO SCH (09:00)
[2017-05-28] MEDS: Magnesium 1GM/D5W 100ML PREMIX 100 ML IV SCH ×2 (09:22→12:41)
[2017-05-28] MEDS: ASPIRIN EC 81 MG TABLET.DR PO SCH (09:22)
[2017-05-28] MEDS: ENOXAPARIN SODIUM 30 MG/0.3 ML DISP.SYRIN SQ SCH (09:26)
[2017-05-28] MEDS: ATORVASTATIN 10 MG TABLET PO SCH (09:29)
[2017-05-28] MEDS: NEOMY SULF/BACITRAC ZN/POLY 15 GM TUBE TP SCH (09:29)
[2017-05-28] MEDS ORDERED: IBUPROFEN 800 MG TABLET PO PRN (13:00)
[2017-05-28] MEDS: IV NS 0.9% 1,000 ML IV PRN (13:26)
[2017-05-28 16:00] VITALS: BP 155/90
--- NOTE | 2017-05-28 18:00 | NUR ---
MS/RN CLOSING NOTE PATIENT IN BED IN STABLE CONDITION. A/O X 3, GUYANESE SPEAKING. NO SIGNS OF ACUTE DISTRESS. NO COMPLAIN OF PAIN OR DISCOMFORT. ALL NEEDS ATTENDED TO. CALL LIGHT WITHIN REACH.
--- NOTE | 2017-05-28 19:37 | NUR ---
MS/RN OPENING NOTES PATIENT IN BED, HOB ELEVATED, AWAKE, ALERTX3,ABLE TO VERBALIZE NEEDS PROVIDED HOT TEA WITH ASSISTANCE, MONITORING FOR PAIN, BLOOD PRESSURE CHECK, SKIN WARM TO TOUCH, RESPIRATIONS EVEN AND UNLABORED, CALL LIGHTS WITHIN REACH, WILL MONITOR. BED IN LOCK POSITION. RECEIVED ENDORSEMENT FROM AM RN.
[2017-05-28 20:00] VITALS: BP 133/56
--- NOTE | 2017-05-28 20:37 | NUR ---
MS/RN NOTES PATEINT OBSERVED, GRIMACE AND GUARDING, REPORTED PAIN OF 7/10, PREFERED NORCO. B/P AT 133/56, ASSIST WITH TURNING, KEEP COMFORTABLE.
[2017-05-29] MEDS: HYDROCODONE/APAP 5/325MG 1 EACH TABLET PO PRN ×2 (05:54→11:25)
--- NOTE | 2017-05-29 05:54 | NUR ---
ms/rn notes jennyfer observed grimalucien parkerf guarding, reposition for comfort and pain medication norco for relief.
[2017-05-29 06:28] LABS: BASOPHILS % (AUTO) 0.3 % (0.0-2.0); EOSINOPHILS # (AUTO) 0.1 /CMM (0.0-0.7); EOSINOPHILS % (AUTO) 0.4 % (0.0-6.0); HEMATOCRIT 31 % (33-45); HEMOGLOBIN 10.8 g/dL (11.5-14.8); LYMPHOCYTES # (AUTO) 1.4 /CMM (0.8-4.8); LYMPHOCYTES % (AUTO) 8.3 % (20.0-44.0); MEAN CORPUSCULAR HEMOGLOBIN 31 PG (26.0-33.0); MEAN CORPUSCULAR HGB CONC 34 g/dl (31.0-36.0); MEAN CORPUSCULAR VOLUME 90 fL (82-100); MONOCYTES # (AUTO) 1.1 /CMM (0.1-1.30); MONOCYTES % (AUTO) 6.9 % (2.0-12.0); NEUTROPHILS # (AUTO) 13.8 /CMM (1.8-8.9); NEUTROPHILS % (AUTO) 84.1 % (43.0-81.0); PLATELET COUNT (AUTO) 283 /CMM (150-450); RDW COEFFICIENT OF VARIATION 13.3 (11.5-15.0); RED BLOOD CELL COUNT(AUTO) 3.48 MIL/uL (4.0-5.2); WHITE BLOOD COUNT (AUTO) 16.4 K/uL (4.3-11.0)
[2017-05-29 06:47] LABS: ALANINE AMINOTRANSFERASE 23 U/L (12-78); ALBUMIN 2.6 g/dL (3.4-5.0); ALKALINE PHOSPHATASE 96 U/L (46-116); ASPARTATE AMINOTRANSFERASE 20 U/L (15-37); BILIRUBIN,TOTAL 0.4 mg/dL (0.2-1.0); CALCIUM, SERUM 9.5 mg/dL (8.5-10.1); CARBON DIOXIDE 28 mmol/L (21-32); CHLORIDE 102 mmol/L (98-107); CREATININE 1.2 mg/dL (0.6-1.3); GLUCOSE 171 mg/dL (74-106); MAGNESIUM 1.9 mg/dL (1.8-2.4); POTASSIUM 3.7 mmol/L (3.5-5.1); SODIUM SERUM 139 mmol/L (136-145); TOTAL PROTEIN, SERUM 6.5 g/dL (6.4-8.2); UREA NITROGEN, BLOOD 42 mg/dL (7-18)
--- NOTE | 2017-05-29 06:47 | NUR ---
ms/rn closing notes patient in bed, resting comfortably in bed, pain management, medication given , repositon for comfort, kept skin intact and dry, will endorse to am rn for kings. bed in lock position, bed in low and call lights within reach, provide fluids. iv on right forearm gauge 22 inserted, patency check. will continue to monitor.
[2017-05-29 08:00] VITALS: BP 155/83
--- NOTE | 2017-05-29 08:00 | NUR ---
MS/RN AM NOTES PATIENT IN BED A/O X 3, MOZAMBICAN SPEAKING.DENIES PAIN OR ACUTE DISTRESS. NO COMPLAIN OF PAIN OR DISCOMFORT. NEEDS ATTENDED TO. CALL LIGHT WITHIN REACH. WILL CONTINUE TO MONITOR TO ENSURE SAFETY.
[2017-05-29] MEDS: ASPIRIN EC 81 MG TABLET.DR PO SCH (09:33)
[2017-05-29] MEDS: ATORVASTATIN 40 MG TABLET PO SCH (09:34)
[2017-05-29] MEDS: LOSARTAN/HCTZ 50-12.5MG/ 1 EA TABLET PO SCH (09:34)
[2017-05-29] MEDS: PANTOPRAZOLE 40 MG TABLET.DR PO SCH (09:35)
[2017-05-29] MEDS: NEOMY SULF/BACITRAC ZN/POLY 15 GM TUBE TP SCH (09:35)
[2017-05-29] MEDS: ENOXAPARIN SODIUM 30 MG/0.3 ML DISP.SYRIN SQ SCH (09:36)
--- NOTE | 2017-05-29 11:00 | NUR ---
PT IS SEEN BY P.T. FOR EVAL DUE TO WEAKNESS.
[2017-05-29] MEDS ORDERED: DEXTROSE 50%-WATER 50 ML DISP.SYRIN IV PRN (11:30)
[2017-05-29] MEDS: BLOOD SUGAR DIAGNOSTIC 1 EACH STRIP IN SCH ×3 (12:46→21:13)
[2017-05-29] MEDS: INSULIN REGULAR, HUMAN 100 UNIT/ML 3 ML VIAL SQ PRN ×3 (12:47→21:18)
[2017-05-29 15:19] LABS: APPEARANCE,URINE CLEAR (CLEAR); BILIRUBIN,URINE NEGATIVE (NEGATIVE); BLOOD, URINE 3+ Ery/uL (NEGATIVE); COLOR,URINE YELLOW (YELLOW); KETONES,URINE NEGATIVE (NEGATIVE); LEUKOCYTE ESTERASE ,URINE NEGATIVE (NEGATIVE); NITRITE, URINE NEGATIVE (NEGATIVE); PROTEIN,URINE NEGATIVE (NEGATIVE); UGLUCOSE NEGATIVE (NEGATIVE); UROBILINOGEN,URINE 0.2 EU/dL (0.2)
[2017-05-29 15:44] LABS: BACTERIA,URINE Rare /HPF (None Seen); SQUAMOUS EPITHELIAL CELL,UR Few /HPF (None Seen); WBC,URINE 0-2 /HPF (0-3)
[2017-05-29 15:45] LABS: CREATININE, URINE 32.8 MG/DL (30.0-125.0); URINE TOTAL PROTEIN 29.7 mg/dL (0-11.9)
[2017-05-29 15:47] LABS: EOSINOPHIL,URINE None Seen
[2017-05-29 16:00] VITALS: BP 144/69
--- NOTE | 2017-05-29 17:45 | NUR ---
PT REFUSED TO EAT DINNER.INSULIN HELD.WILL ENDORSE TO GRAINING MACHINE OPERATOR.PT SLEEPING COMFORTABLY DENYING ANY PAIN OR DISTRESS.ONGOING IVF INFUSING WELL.CALL LIGHT PLACED WITHIN REACH.
--- NOTE | 2017-05-29 19:25 | NUR ---
MS RN OPENING NOTES: RECEIVED PT AND IS LAYING IN BED COMFORTABLY. PT IS SYRIAC SPEAKING BUT CAN SPEAK/UNDERSTAND SOME MOHAWK. PT ON ROOM AIR AND TOLERATING WELL. PT HAS IV ON R FOREARM #22G AND IS BEING INFUSED WITH NS AT 60ML/HR. CALL LIGHT WITHIN PT'S REACH. BED KEPT IN LOW, LOCKED POSITION, AND SIDE RAILS X 2UP. WILL CONTINUE TO MONITOR PT.
[2017-05-29 20:00] VITALS: BP 140/52
--- NOTE | 2017-05-29 21:20 | NUR ---
MS RN NOTES: BLOOD SUGAR WAS 144. 2 UNITS OF INSULIN WAS ADMINISTERED. WILL CONTINUE TO MONITOR PT.
[2017-05-29] MEDS: IV NS 0.9% 1,000 ML IV PRN (23:59)
[2017-05-30] MEDS: HYDROCODONE/APAP 5/325MG 1 EACH TABLET PO PRN ×2 (05:04→10:18)
--- NOTE | 2017-05-30 05:05 | NUR ---
MS RN NOTES: PT COMPLAINING OF ABDOMINAL PAIN 10/14. PT POINTING AT HER ABDOMEN. PT WAS ADMINISTERED NORCO 5. WILL CONTINUE TO MONITOR P.T
[2017-05-30] MEDS: BLOOD SUGAR DIAGNOSTIC 1 EACH STRIP IN SCH ×4 (06:05→21:04)
[2017-05-30] MEDS: INSULIN REGULAR, HUMAN 100 UNIT/ML 3 ML VIAL SQ PRN ×4 (06:22→21:09)
--- NOTE | 2017-05-30 06:25 | NUR ---
MS RN NOTES: BLOOD SUGAR THIS AM WAS 147. 2 UNITS OF INSULIN WAS ADMINISTERED. SNACK WAS PROVIDED. WILL CONTINUE TO MONITOR PT.
--- NOTE | 2017-05-30 07:05 | NUR ---
MS RN CLOSING NOTES: ALL NEEDS WERE ATTENDED AND ANTICIPATED FOR. PT ON 2LPM VIA NC AND IS TOLERATING WELL. PT ASLEEP IN SEMI-NEGRETE'S POSITION. CALL LIGHT WITHIN PT'S REACH. BED KEPT IN LOW, LOCKED POSITION, AND SIDE RAILS X 2UP. PT HAS IV ON R FOREARM #22G AND IS BEING INFUSED WITH NS AT 60ML/HR. ENDORSED TO AM NURSE FOR GINA.
--- NOTE | 2017-05-30 07:36 | NUR ---
MS/RN OPENING NOTE PATIENT IN BED. ALERT AND ORIENTED X4. DENIES SOB, PAIN AT THIS TIME. RESPIRATION REGULAR AND UNLABORED. RFA G 22 PATENT AND IV INFUSING WITH NO S/S INFILTRATION. BED LOW AND LOCKED. SIDE RAILS UP X3. CALL LIGHT WITHIN REACH. WILL CONTINUE TO MONITOR.
[2017-05-30 07:47] LABS: BASOPHILS # (AUTO) 0.1 /CMM (0.0-0.2); BASOPHILS % (AUTO) 0.3 % (0.0-2.0); EOSINOPHILS # (AUTO) 0.1 /CMM (0.0-0.7); EOSINOPHILS % (AUTO) 0.3 % (0.0-6.0); HEMATOCRIT 31 % (33-45); HEMOGLOBIN 10.5 g/dL (11.5-14.8); LYMPHOCYTES # (AUTO) 1.6 /CMM (0.8-4.8); LYMPHOCYTES % (AUTO) 8.5 % (20.0-44.0); MEAN CORPUSCULAR HEMOGLOBIN 31 PG (26.0-33.0); MEAN CORPUSCULAR HGB CONC 34 g/dl (31.0-36.0); MEAN CORPUSCULAR VOLUME 91 fL (82-100); MONOCYTES # (AUTO) 1.4 /CMM (0.1-1.30); MONOCYTES % (AUTO) 7.3 % (2.0-12.0); NEUTROPHILS % (AUTO) 83.6 % (43.0-81.0); PLATELET COUNT (AUTO) 286 /CMM (150-450); RDW COEFFICIENT OF VARIATION 13.5 (11.5-15.0); WHITE BLOOD COUNT (AUTO) 19.1 K/uL (4.3-11.0)
[2017-05-30 08:00] VITALS: BP 134/74
[2017-05-30 08:07] LABS: CREATINE KINASE, TOTAL 38 U/L (26-192)
[2017-05-30 08:10] LABS: ALANINE AMINOTRANSFERASE 26 U/L (12-78); ALBUMIN 2.3 g/dL (3.4-5.0); ALKALINE PHOSPHATASE 102 U/L (46-116); ASPARTATE AMINOTRANSFERASE 16 U/L (15-37); BILIRUBIN,TOTAL 0.7 mg/dL (0.2-1.0); CALCIUM, SERUM 9.3 mg/dL (8.5-10.1); CARBON DIOXIDE 27 mmol/L (21-32); CHLORIDE 101 mmol/L (98-107); CREATININE 1.2 mg/dL (0.6-1.3); GLUCOSE 151 mg/dL (74-106); MAGNESIUM 1.8 mg/dL (1.8-2.4); SODIUM SERUM 138 mmol/L (136-145); TOTAL PROTEIN, SERUM 6.6 g/dL (6.4-8.2); UREA NITROGEN, BLOOD 33 mg/dL (7-18)
[2017-05-30] MEDS: LOSARTAN/HCTZ 50-12.5MG/ 1 EA TABLET PO SCH (09:04)
[2017-05-30] MEDS: ASPIRIN EC 81 MG TABLET.DR PO SCH (09:04)
[2017-05-30] MEDS: PANTOPRAZOLE 40 MG TABLET.DR PO SCH (09:04)
[2017-05-30] MEDS: ATORVASTATIN 40 MG TABLET PO SCH (09:04)
[2017-05-30] MEDS: NEOMY SULF/BACITRAC ZN/POLY 15 GM TUBE TP SCH (09:04)
[2017-05-30] MEDS: ENOXAPARIN SODIUM 30 MG/0.3 ML DISP.SYRIN SQ SCH (09:05)
[2017-05-30 16:00] VITALS: BP 153/55
--- NOTE | 2017-05-30 16:30 | NUR ---
MS/RN PATIENT COMPLAIN OF RIGHT WRIST PAIN 5/10. RADIAL PULSE PRESENT. SKIN INTACT. NO DISCOLORATION NOTED. PATIENT ABLE TO PERFORM RANGE OF MOTION. DR CUNNINGHAM MADE AWARE AND PER MD SPLINT TO RIGHT WRITS/HAND IS APPLIED.
--- NOTE | 2017-05-30 16:31 | NUR ---
MS/RN NOTE PATIENT REFUSED PAIN MEDICATION FOR RIGHT WRIST PAIN DESPITE EXPLAINING RISKS AND BENEFITS MULTIPLE TIMES.
--- NOTE | 2017-05-30 18:19 | NUR ---
MS/RN CLOSING NOTE PATIENT ALERT AND ORIENTED X4. RESPIRATION REGULAR AND UNLABORED. DENIES SOB, PAIN AT THIS TIME. RFA G 22 PATENT. GOOD AND GENTLE SKIN CARE RENDERED. KEPT CLEAN AND COMFORTABLE. ALL NEEDS ATTENDED AND ANTICIPATED. BED LOW AND LOCKED. SIDE RAILS UP X3. CALL LIGHT WITHIN REACH. WILL ENDORSE TO NIGH SHIFT.
--- NOTE | 2017-05-30 19:05 | NUR ---
MS WAHL OPENING NOTES: RECEIVED PT IN BED ON 3LPM VIA NC AND IS ASLEEP AT THIS TIME. NOTED SLING/BRACE ON PT'S RIGHT ARM. PT ALSO HAS IV ON RIGHT FOREARM #22G AND IS PATENT AND INTACT. WILL CONNECT PT BACK TO FLUIDS SOON PT IS REFUSING IT AT THIS TIME. CALL LIGHT WITHIN PT'S REACH. BED ALARM ACTIVATED. BED KEPT IN LOW, LOCKED POSITION, AND SIDE RAILS X 3 UP. WILL CONTINUE TO MONITOR PT. Addendum: 05/30/17 at 1947 by JAMIE WEISS RN PT ONLY WELSH SPEAKING BUT CAN UNDERSTAND SOME ROMANSH.
[2017-05-30 20:00] VITALS: BP 159/79
--- NOTE | 2017-05-30 21:10 | NUR ---
MS RN NOTES: BLOOD SUGAR WAS 159. 2 UNITS OF INSULIN WAS ADMINISTERED. WILL CONTINUE TO MONITOR PT.
[2017-05-30] MEDS: IBUPROFEN 200 MG TABLET PO PRN (21:18)
--- NOTE | 2017-05-30 21:20 | NUR ---
MS RN NOTES: PT KEEPS SAYING "PAIN" AND POINTING AT HER R HAND AND WRIST. PT WAS ADMINISTERED MOTRIN 400MG PO. WILL CONTINUE TO MONITOR PT.
[2017-05-31 01:00] VITALS: BP 101/56
[2017-05-31] MEDS: IV NS 0.9% 1,000 ML IV PRN (03:23)
[2017-05-31] MEDS: ACETAMINOPHEN 325 MG TABLET PO PRN ×2 (03:26→17:36)
--- NOTE | 2017-05-31 03:27 | NUR ---
MS RN NOTES: PT COMPLAINING AND POINTING OF R HAND/ARM PAIN. PT ADMINISTERED TYLENOL 650MG. WILL CONTINUE TO MONITOR.
[2017-05-31] MEDS: BLOOD SUGAR DIAGNOSTIC 1 EACH STRIP IN SCH ×4 (06:02→22:16)
[2017-05-31 06:21] VITALS: BP 138/68
[2017-05-31] MEDS: INSULIN REGULAR, HUMAN 100 UNIT/ML 3 ML VIAL SQ PRN ×4 (06:28→22:23)
[2017-05-31] MEDS: HYDROCODONE/APAP 5/325MG 1 EACH TABLET PO PRN (06:29)
--- NOTE | 2017-05-31 06:34 | NUR ---
MS RN NOTES: BLOOD SUGAR THIS AM WAS 140. 2 UNITS OF INSULIN WAS ADMINISTERED. NORCO 5 WAS GOING TO BE ADMINISTERED BUT PT REFUSED AFTER PACKAGE BEING OPENED. PT NO LONGER WANTED IT. MEDICATION WAS WASTED IN [facility] ROOM WITH ANOTHER RN.
[2017-05-31 06:47] LABS: BASOPHILS # (AUTO) 0.1 /CMM (0.0-0.2); BASOPHILS % (AUTO) 0.3 % (0.0-2.0); EOSINOPHILS # (AUTO) 0.2 /CMM (0.0-0.7); HEMATOCRIT 29 % (33-45); HEMOGLOBIN 9.8 g/dL (11.5-14.8); LYMPHOCYTES # (AUTO) 2.1 /CMM (0.8-4.8); LYMPHOCYTES % (AUTO) 12.1 % (20.0-44.0); MEAN CORPUSCULAR HEMOGLOBIN 31 PG (26.0-33.0); MEAN CORPUSCULAR HGB CONC 34 g/dl (31.0-36.0); MEAN CORPUSCULAR VOLUME 92 fL (82-100); MONOCYTES # (AUTO) 1.4 /CMM (0.1-1.30); MONOCYTES % (AUTO) 8.3 % (2.0-12.0); NEUTROPHILS # (AUTO) 13.7 /CMM (1.8-8.9); NEUTROPHILS % (AUTO) 78.3 % (43.0-81.0); PLATELET COUNT (AUTO) 258 /CMM (150-450); RDW COEFFICIENT OF VARIATION 13.8 (11.5-15.0); RED BLOOD CELL COUNT(AUTO) 3.14 MIL/uL (4.0-5.2); WHITE BLOOD COUNT (AUTO) 17.5 K/uL (4.3-11.0)
[2017-05-31 07:00] LABS: CALCIUM, SERUM 9.3 mg/dL (8.5-10.1); CARBON DIOXIDE 28 mmol/L (21-32); CHLORIDE 101 mmol/L (98-107); CREATININE 1.3 mg/dL (0.6-1.3); GLUCOSE 141 mg/dL (74-106); MAGNESIUM 1.7 mg/dL (1.8-2.4); PHOSPHORUS 3.9 mg/dL (2.5-4.9); SODIUM SERUM 136 mmol/L (136-145); UREA NITROGEN, BLOOD 39 mg/dL (7-18)
--- NOTE | 2017-05-31 07:33 | NUR ---
MS RN CLOSING NOTES: ALL NEEDS WERE ATTENDED AND ANTICIPATED FOR. PT DID NOT WANT ANY PAIN MEDICATIONS WHEN OFFERED. PT FRUSTRATED THAT PAIN WON'T GO AWAY EVEN WITH PAIN MEDS ADMINISTERED. PT HAS IV AND IS BEING INFUSED WITH NS AT 60ML/HR. PT IRAQI SPEAKING AND UNDERSTANDING ONLY. PT ONLY SPEAKS VERY LITTLE [place] VERDEAN. BED ALARM ACTIVATED. PT ON 2LPM VIA NC AND TOLERATING WELL. CALL LIGHT WITHIN PT'S REACH. BED KEPT IN LOW, LOCKED POSITION, AND SIDE RAILS X2 UP. ENDORSED TO AM NURSE FOR GINA.
[2017-05-31 08:00] VITALS: BP 136/57
[2017-05-31] MEDS: PANTOPRAZOLE 40 MG TABLET.DR PO SCH (08:22)
[2017-05-31] MEDS: IBUPROFEN 200 MG TABLET PO PRN ×2 (08:23→20:25)
[2017-05-31] MEDS: LOSARTAN/HCTZ 50-12.5MG/ 1 EA TABLET PO SCH ×2 (09:00→09:59)
--- NOTE | 2017-05-31 09:00 | NUR ---
find iv rt. arm infiltrated and removed.oil heater installer in and ordered midline iv.
[2017-05-31] MEDS: ENOXAPARIN SODIUM 30 MG/0.3 ML DISP.SYRIN SQ SCH (09:54)
[2017-05-31] MEDS: ATORVASTATIN 40 MG TABLET PO SCH (09:58)
[2017-05-31] MEDS: ASPIRIN EC 81 MG TABLET.DR PO SCH (09:59)
--- NOTE | 2017-05-31 10:00 | NUR ---
family refused to let rn give hyzaar in am-dtr. states only if bp is 150 or 160.
[2017-05-31] MEDS: NEOMY SULF/BACITRAC ZN/POLY 15 GM TUBE TP SCH (10:02)
[2017-05-31] MEDS ORDERED: Magnesium 1GM/D5W 100ML PREMIX PIGGYBACK IV SCH ×2 (10:30→19:00)
--- NOTE | 2017-05-31 12:30 | NUR ---
family in to visit.family research professional [place] lugo.
[2017-05-31 16:00] VITALS: BP 149/61
--- NOTE | 2017-05-31 18:30 | NUR ---
medicated for discomfort x2,one time with motrin and second time with tylenol.
--- NOTE | 2017-05-31 18:40 | NUR ---
anabel diehl in and placed midline lt. upper arm,now mg iv replacement given.
--- NOTE | 2017-05-31 19:36 | NUR ---
MS RN NOTES RECEIVED ON BED A/O X3-4,OBESE,BREATHING REGULAR,NOT IN ANY FORM OF DISTRESS.WITH RFA SALINE LOCK INFUSING NS AT 60ML/HR RATE.SITE PATENT.WITH LEFT UPPER MIDLINE RUNNING MAGNESIUM AT THIS TIME.CALL LIGHT IN REACH,NEEDS ANTICIPATED.
[2017-05-31 20:00] VITALS: BP 152/61
--- NOTE | 2017-05-31 20:25 | NUR ---
MS RN NOTES C/O PAIN VIA RIGHT HAND,6/10 ON PAIN SCALE,MOTRIN 400MG PO GIVEN.ICE PACK APPLIED TO HAND AND ELEVATED.
--- NOTE | 2017-05-31 22:00 | NUR ---
MS RN NOTES ACCU-CHECK BLOOD SUGAR CHECK 143,COVERED WITH HUMULIN R 2UNITS PER SLIDING SCALE.
[2017-05-31 23:07] LABS: PTH, INTACT 35 pg/mL (15-65)
[2017-06-01] MEDS: ACETAMINOPHEN 325 MG TABLET PO PRN (01:57)
--- NOTE | 2017-06-01 01:57 | NUR ---
MS RN NOTES C/O PAIN ON RIGHT HAND 3/10 ON PAIN SCALE,TYLENOL 650MG PO GIVEN.FAMILY DONT WANT LIS FOR JUNE.ENT
--- NOTE | 2017-06-01 03:00 | NUR ---
MS RN NOTES SLEEPING AT THIS TIME.KEPT WARM AND COMFORTABLE.
--- NOTE | 2017-06-01 06:22 | NUR ---
MS RN NOTES ACCU-CHECK BLOOD SUGAR CHECK 141,WILL COVER WITH HUMULIN R 2 UNITS PER SLIDING WHEN SHE COMES BACK FROM CT AT [facility].
--- NOTE | 2017-06-01 06:24 | NUR ---
MS RN NOTES SLEPT WITH INTERVALS,MOANS IN PAIN ON THE RIGHT HAND,ICE PACK APPLIED TO HAND WITH LITTLE RELIEF.IN NO ACUTE DISTRESS.AWAITING AMBULANCE FOR CLEARING TUB WORKER GOING TO [facility] MRI FOR CT CERVICAL LUMBAR SPINE.LEFT UPPER ARM MIDLINE REMAINS PATENT.WILL ENDORSE TO DAY NURSE FOR GINA.
[2017-06-01] MEDS: BLOOD SUGAR DIAGNOSTIC 1 EACH STRIP IN SCH ×2 (06:40→12:22)
[2017-06-01] MEDS: INSULIN REGULAR, HUMAN 100 UNIT/ML 3 ML VIAL SQ PRN ×2 (06:42→12:27)
[2017-06-01] MEDS: ASPIRIN EC 81 MG TABLET.DR PO SCH (07:33)
[2017-06-01] MEDS: PANTOPRAZOLE 40 MG TABLET.DR PO SCH (07:33)
[2017-06-01] MEDS: ENOXAPARIN SODIUM 30 MG/0.3 ML DISP.SYRIN SQ SCH (07:37)
[2017-06-01] MEDS: LOSARTAN/HCTZ 50-12.5MG/ 1 EA TABLET PO SCH (07:41)
--- NOTE | 2017-06-01 07:50 | NUR ---
RN NOTES RECEIVED PATIENT IN THE ROOM A/O X3, KAZAKH SPEAKER, PATIENT HAS NO RESPIRATORY DISTRESS, PATIENT WAS C/O PAIN RIGHT ARM, BUT REFUSED MEDICATION AT THIS TIME. V/S TAKEN STABLE, SCHEDULED MEDICATION ADMINISTERED, NEEDS ATTENDED AND ANTICIPATED. PATIENT GOING TO [facility] CT CERVICAL , LUMBAR OPEN MRI PROCEDURE ORDINARY SEAMAN BY AMBULANCE. SON NEXT TO THE BED.
--- NOTE | 2017-06-01 07:56 | NUR ---
RN NOTES PATIENT DEPUTY CONTROLLER BY AMBULANCE FOR [facility] OPEN MRI AT THIS TIME.
[2017-06-01 07:57] VITALS: BP 159/73
[2017-06-01 08:00] VITALS: BP 159/73
[2017-06-01] MEDS: ATORVASTATIN 40 MG TABLET PO SCH (09:00)
--- NOTE | 2017-06-01 10:00 | NUR ---
rn notes patient back from open mri, patient stable, no c/o pain, no acute respiratory distress, v/s stable, call light within to reach, continued monitoring.
[2017-06-01] MEDS: NEOMY SULF/BACITRAC ZN/POLY 15 GM TUBE TP SCH (10:31)
--- NOTE | 2017-06-01 12:30 | NUR ---
RN NOTES BS-234 MG/DL COVERAGE GIVEN, PATIENT EATING LUNCH SITTING EDGE OF THE BED,, NO ACUTE DISTRESS, PATIENT ON O2-2L NC, CALL LIGHT WITHIN TO REACH, SAFETY PRECAUTION MAINTAINED ALL THE TIME, CONTINUED MONITORING.
--- NOTE | 2017-06-01 15:05 | NUR ---
discharge notes PATIENT DISCHARGE AT THIS TIME GOING SNF. PATIENT A/O X3/4, DIVEHI SPEAKER. PATIENT HAS NO C/O PAIN AT THIS TIME, NO RESPIRATORY DISTRESS, V/S STABLE, MEDICALLY STABLE. MED RECONCILIATION AND DISCHARGE ORDER REVIEWED ND EXPLAINED TO. REPORT GIVEN SNF RN KATHY. RN VERBALIZED UNDERSTANDING. BELONGING WITH THE PATIENT. PATIENT WILL FOLLOW SNF MANGANESE HEATER. FAMILY WITH THE PATIENT DURING DISCHARGE, PICTURE TAKEN, PATIENT SIGN PAPERWORK. 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
[2017-06-02 09:17] LABS: *SPE A/G RATIO 0.9 (0.7-1.7); *SPE ALBUMIN 2.6 g/dL (2.9-4.4); *SPE ALPHA-1-GLOBULIN 0.5 g/dL (0.0-0.4); *SPE ALPHA-2-GLOBULIN 1.1 g/dL (0.4-1.0); *SPE M-SPIKE Not Observed g/dL (Not Observed); *SPEGAMMA GLOBULIN 0.5 g/dL (0.4-1.8)
== END 2017-06-01 15:00 | DRG 551 ==
LOC: ER 17:30 → MED 22:28
PROVIDERS: ADMIT Nurse Practitioner Acute Care; ATTEND Nurse Practitioner Acute Care
PROC: 05H633Z Insertion of Infusion Device into Left Subclavian Vein, Percutaneous Approach (ICD-10-PCS; principal; 2017-06-01)
PROC: B547ZZA Ultrasonography of Left Subclavian Vein, Guidance (ICD-10-PCS; 2017-06-01)
DX: M54.41 Lumbago with sciatica, right side (principal); K85.90 Acute pancreatitis without necrosis or infection, unspecified; N17.0 Acute kidney failure with tubular necrosis; E11.42 Type 2 diabetes mellitus with diabetic polyneuropathy; I27.20 Pulmonary hypertension, unspecified; E66.01 Morbid (severe) obesity due to excess calories; I50.32 Chronic diastolic (congestive) heart failure; Z68.43 Body mass index [BMI] 50.0-59.9, adult; I11.0 Hypertensive heart disease with heart failure; W18.30XA Fall on same level, unspecified, initial encounter; Z79.899 Other long term (current) drug therapy; E83.42 Hypomagnesemia; Y92.009 Unspecified place in unspecified non-institutional (private) residence as the place of occurrence of the external cause; I35.0 Nonrheumatic aortic (valve) stenosis; M25.78 Osteophyte, vertebrae; M25.512 Pain in left shoulder; R21 Rash and other nonspecific skin eruption; J45.909 Unspecified asthma, uncomplicated; F32.9 Major depressive disorder, single episode, unspecified; F41.9 Anxiety disorder, unspecified; E78.5 Hyperlipidemia, unspecified; E86.9 Volume depletion, unspecified; Z79.82 Long term (current) use of aspirin; M85.80 Other specified disorders of bone density and structure, unspecified site; X58.XXXA Exposure to other specified factors, initial encounter; Y92.9 Unspecified place or not applicable; S31.109A Unspecified open wound of abdominal wall, unspecified quadrant without penetration into peritoneal cavity, initial encounter
CPT/HCPCS: 36415; 72040-TC; 72074-TC; 73110; 73552; 73560-TC; 73590-TC; 80048-TC; 80053-TC; 80061-TC; 81000-TC; 82306; 82550-TC; 82570-TC; 82728-TC; 82962-TC; 83540-TC; 83735-TC; 83970; 84100-TC; 84155; 84155-TC; 84165; 84300-TC; 84439-TC; 84443-TC; 85025-TC; 87081-TC; 87086-TC; 93307-TC; 93971-TC; 97110-TC; 97530-TC; A4606; A6248; J0360; J1100; J1650; J1815; J2270; J2405; J3475; J7030; Z7610